=== PATIENT | male | born 1990 ===

== ENCOUNTER 2018-02-20 16:21 | Emergency (ER) | payer OTHER ==
[2018-02-20 16:25] VITALS: BMI 25.8
[2018-02-20 16:27] VITALS: BP 119/70; PULSE 64; RESP 18; TEMP 98.4; O2SAT 99
[2018-02-20] MEDS ORDERED: PROPARACAINE/FLUORESCEIN SOD 100 DROP/5 ML BOTTLE OS STA (16:58)
--- NOTE | 2018-02-20 16:59 | C.PDOC ---
History Of Present Illness 27 y/o male with no PMHx, presents to the ED complaining of right eye pain s/p injury at work today. 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 He denies wearing contacts or glasses. Patient experienced immediate discomfort and excessive tearing. Pain is worse with blinking, associated with photophobia. States he has no visual changes but it is difficult to see through the tears. Unknown last Tetanus. Patient denies any other injury, headache, or dizziness. Time Seen by Provider: 02/20/18 16:51 Chief Complaint (Nursing): Eye Problem History Per: Patient History/Exam Limitations: no limitations Onset/Duration Of Symptoms: Hrs Current Symptoms Are (Timing): Still Present Quality: "Pain" Associated Symptoms: Pain Past Medical History Reviewed: Historical Data, Nursing Documentation, Vital Signs Vital Signs: Last Vital Signs Temp 98.4 F 02/20/18 16:25 Pulse 64 02/20/18 16:25 Resp 18 02/20/18 16:25 BP 119/70 02/20/18 16:25 Pulse Ox 99 02/20/18 16:25 - Medical History PMH: No Chronic Diseases Surgical History: No Surg Hx Family History: States: No Known Family Hx - Social History Hx Alcohol Use: No Hx Substance Use: No - Immunization History Hx Tetanus Toxoid Vaccination: No Hx Influenza Vaccination: No Hx Pneumococcal Vaccination: No Review Of Systems Except As Marked, All Systems Reviewed And Found Negative. Constitutional: Negative for: Fever, Chills Eyes: Positive for: Pain, Other (Increased tearing). Negative for: Vision Change Respiratory: Negative for: Cough, Shortness of Breath Gastrointestinal: Negative for: Nausea, Vomiting, Abdominal Pain Neurological: Negative for: Weakness, Numbness, Headache, Dizziness Physical Exam - Physical Exam Appears: Non-toxic, Other (Appears uncomfortable) Skin: Normal Color, Warm, Dry Head: Atraumatic, Normacephalic Eye(s): bilateral: PERRL, EOMI, right: Photophobia, Other (Erythematous conjunctiva and increased tearing/clear discharge), left: Normal Inspection Nose: Normal Oral Mucosa: Moist Neck: Normal ROM, Supple Cardiovascular: Rhythm Regular Respiratory: Normal Breath Sounds Gastrointestinal/Abdominal: Soft, No Tenderness Extremity: Normal ROM Pulses: Left Radial: Normal, Right Radial: Normal Neurological/Psych: Oriented x3, Normal Speech, Normal Cranial Nerves, Normal Motor, Normal Sensation Gait: Steady ED Course And Treatment O2 Sat by Pulse Oximetry: 99 (RA) Pulse Ox Interpretation: Normal Progress Note: Fluorescein stain applied after tetracaine. + Small area of uptake seen at 2 oclock position, suspicious for abrasion. No FB visualized. Patient reports resolution of discomfort after application of tetracaine. Medical Decision Making Medical Decision Making: Initial Plan: * Visual acuity * Tdap * Fluoroscein Stain translation provided by nurse De Leon to ensure patient understanding Case and visual acuity results discussed with Dr. Foote, whoa agrees with plan of care and disposition Patient given antibiotic drops and advised to followup with opthamology without fail within 1-2 days. Patient verbalized understanding. Diagnostic testing results and plan of care discussed with patient. Strict instructions given regarding prescription use, importance of followup, and signs/symptoms to return to ER including visual changes, worsening pain, dizziness, headache, or any other new/worsening symptoms. Pt verbalized understanding of discussion. Patient is A&Ox3, ambluating with steady gait, with vital signs stable for discharge. Disposition - Disposition Referrals: [facility] at [facility] [Outside] Anival Mckinley MD [Staff Provider] - Disposition: HOME/ ROUTINE Disposition Time: 17:50 Condition: IMPROVED Additional Instructions: 2 gotas cada 6h en el ryan derecho. Seguimiento con el oculista maana. Seguimiento con mdico primario en 2 flores. 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 - Scribe Statement The provider has reviewed the documentation as recorded by the Scribe Jovanna Sweeney All medical record entries made by the Scribe were at my direction and personally dictated by me. I have reviewed the chart and agree that the record accurately reflects my personal performance of the history, physical exam, medical decision making, and the department course for this patient. I have also personally directed, reviewed, and agree with the discharge instructions and dis position.
[2018-02-20] MEDS ORDERED: Fluorescein 1 mg Ophthalmic Strip ONE (17:09)
[2018-02-20] MEDS ORDERED: Tdap Vaccine 0.5 ml Vial (10-64 yrs) IM ONE ×2 (17:15→17:51)
== END 2018-02-20 18:01 | disposition home or self-care (01) ==
LOC: C.ER 16:21
DX: S05.01XA Injury of conjunctiva and corneal abrasion without foreign body, right eye, initial encounter (principal); X58.XXXA Exposure to other specified factors, initial encounter; Y92.89 Other specified places as the place of occurrence of the external cause; Y99.0 Civilian activity done for income or pay